=== PATIENT | female | born 1985 | race Caucasian/White ===

== ENCOUNTER 2018-01-08 06:58 | Day surgery (SDC) | payer OTHER ==
[~2018-01-08 06:58] MED LIST: Acetaminophen TAB* 325 MG PO ONE; Buffered Lidocaine 0.9% SYRIN* 5 ML/SYR SYRINGE INTRADERM ONE
[2018-01-08] MEDS ORDERED: Buffered Lidocaine 0.9% SYRIN* 5 ML/SYR SYRINGE ONE (07:27)
[2018-01-08] MEDS ORDERED: Acetaminophen TAB* 325 MG ONE (07:27)
[2018-01-08] MEDS ORDERED: fentaNYL* 50 MCG/ML 2 ML VIAL (100 MCG VIAL) ONE (08:25)
[2018-01-08] MEDS ORDERED: Midazolam* 1 MG/ML 2 ML VIAL (2 MG) ONE ×2 (08:26→09:44)
[2018-01-08] MEDS ORDERED: Lidocaine 1% INJ* 10 MG/ML 30 ML SDV ONE (08:59)
[2018-01-08] MEDS ORDERED: ceFAZolin 2 GM PREMIX in ORs 2 GM/50 ML BAG IVPB ONE (09:02)
[2018-01-08] MEDS ORDERED: Bupivacaine 0.25% SDV PF* 10 ML VIAL INJ ONE (09:16)
[2018-01-08] MEDS ORDERED: Lidocaine 2% PF * 5 ML VIAL ONE (09:18)
[2018-01-08] MEDS ORDERED: Hetastarch 6% in NS* 500 ML IV ONE (09:26)
[2018-01-08] MEDS ORDERED: Ondansetron INJ* 2 MG/ML VIAL ONE (09:52)
[2018-01-08] MEDS ORDERED: Dexamethasone IV* 4 MG/ML 1 ML (4 MG) ONE (09:52)
[2018-01-08] MEDS ORDERED: Propofol* 10 MG/ML 20 ML BTL ONE (09:52)
[2018-01-08] MEDS ORDERED: HYDROcodone/ACETAMIN 5-325 MG* 1 TAB PO PRN ×2 (09:57)
[2018-01-08] MEDS ORDERED: diPHENhydraMINE IV* 50 MG/ML 1 ml VIAL (BENADRYL) IV PRN (09:57)
[2018-01-08] MEDS ORDERED: DiMENhydriNATE IV* 50 MG/ML VIAL IV PUSH PRN (09:57)
[2018-01-08] MEDS ORDERED: Naloxone* 0.4 MG/ML 1 ML VIAL IV PRN (09:57)
[2018-01-08 10:50] VITALS: BP 118/81
--- NOTE | 2018-01-09 05:27 | OP ---
DATE OF OPERATION: 01/08/18 - [facility] DATE OF : 83 ATTENDING SURGEON: Gerardo Norris MD PREOPERATIVE DIAGNOSIS: Poor venous access, requiring transfusion and blood draws for lupus. POSTOPERATIVE DIAGNOSIS: Poor venous access, requiring transfusion and blood draws for lupus. OPERATIVE PROCEDURE: Placement of left side Mediport, subclavian. INDICATION FOR PROCEDURE: Access. Risks of surgery include, but not limited to bleeding, infection, and pneumothorax explained to the patient and seemed to have understanding and agreed to procedure and all questions were answered. DESCRIPTION OF PROCEDURE: The patient was taken to the operating room, placed supine. Preoperative antibiotics were given. The patient was placed in the Trendelenburg position. Left neck and chest were prepped and draped in sterile fashion. Time-out was performed. The skin was anesthetized with 0.25% Marcaine beneath the left clavicle. A needle was placed in the left subclavian vein and a wire was passed through the needle. The needle was removed. A catheter was passed over the wire over the split sheath. The wire was removed. Prior to removing the wire, fluoroscopy showed the wire in good position just above the right atrium. The wire was removed. The sheath was used to pass the catheter down to the superior vena cava just above the right atrium identified by a fluoroscopy. Split sheath was removed. The pocket was made below this entry site after injecting local and creating a small blood pocket that would fit the Mediport. The catheter was tunneled to this pocket. The port was attached, it aspirated blood easily and flushed with heparinized saline. Fluoroscopy was checked again and catheter was in good position. The pocket was closed in layers using 3-0 Monocryl. The skin was closed with the glue. She tolerated the procedure well. She was taken out of Trendelenburg position and taken to the Recovery in stable condition where an x-ray will be performed. [id number] #: [id number] MTDD
== END 2018-01-08 11:13 | disposition home or self-care (01) ==
LOC: OR 06:58
PROVIDERS: ATTEND Surgery
DX: M32.9 Systemic lupus erythematosus, unspecified (principal); E03.9 Hypothyroidism, unspecified; G61.9 Inflammatory polyneuropathy, unspecified; Z79.891 Long term (current) use of opiate analgesic; F41.9 Anxiety disorder, unspecified
CPT/HCPCS: 71045; 76000; 81025; A9270-GY; C1788; J0690; J1100; J1642; J2250; J2405; J2704; J3010; J3490

== ENCOUNTER 2018-01-21 13:29 | Inpatient (IN) | payer OTHER ==
--- OUTSIDE RECORDS SUMMARY | 2018-01-21 15:08 | XMS REPORT | Continuity of Care Document ---
:1985 External Reference #:[id number] Author Name Judy Ennis Care Team Providers Name Role Phone Willard Alfaro MD Primary Care Physician Unavailable Payers Type Date Identification Numbers Payment Provider Subscriber Policy Number: [id number] Zeina [employer] Number: [id number] [id number] PayID: [id number] [place] [address] Advance Directives Description No Information Available Problems Date Description Provider Status Onset: 12/12/2016 Myalgia Smith Dial M.D. 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 Active Onset: 12/12/2016 Chronic fatigue syndrome Smith Dial M.D. Active Onset: 12/12/2016 Skin sensation disturbance Smith Dial M.D. Active Onset: 12/12/2016 Neck pain Smith Dial M.D. Active Family History Date Family Member(s) Problem(s) Comments General No Current Problems Social History Type Date Description Comments Sex Unknown Marital Status Lives With Mother And Father Occupation Currently Working Smokeless Tobacco Never Used Smokeless Tobacco ETOH Use Denies alcohol use Tobacco Use Start: Unknown Patient has never smoked Recreational Drug Use Denies Drug Use Smoking Status Reviewed: 12/27/17 Patient has never smoked Exercise Type/Frequency Exercises rarely Allergies, Adverse Reactions, Alerts Description No Known Drug Allergies Medications Medication Date Status Form Strength Qnty SIG Indications Ordering Provider Prednisone 11/14/ Active Tablets 10mg 30tabs Take one M35.01 Willard 2017 capsule/table elia Alfaro daily by M.D. mouth Stocking 10/12/ Active Misc 2units apply to help R60.0 Willard Applicator 2018 edema/spider Angelina, Regular viens with M.D. compression stockings Benlysta 08/21/ Active Solution 200mg/ml 4units Willard 2018 Auto-Injec Angelina, t M.D. Trazodone 08/17/ Active Tablets 50mg 30tabs take one M79.7 Willard HCL 2018 tablet/capsul Angelina, e by mouth at M.D. bedtime. as needed for insomnia, stop tizanidine M35.9 Butrans 08/17/2017 Active Patches 10mcg/HR 4units topical every M32.9 Willard Weekly 7 days, Angelina, chronic pain M.D. for dx m32.9 lupus Hydrocodone-Ac 05/29/2017 Active Tablets 10-325mg 90tabs take one Willard etaminophen tablet 3 to 4 Angelina, times daily, M.D. sparingly as needed for pain, max 4 per day Gabapentin 12/01/2016 Active Capsules 300mg 270caps take one Willard capsule/tablet Angelina, by mouth three M.D. times daily Vitamin D 07/29/2016 Active Tablets 2000Unit 90tabs Take one Willard capsule/tablet Angelina, daily by mouth M.D. Cyanocobalamin 07/29/2016 Active Tablets 2500mcg 90tabs take one Willard Sub capsule/tablet Angelina, daily M.D. sublingually Levothyroxine Active Tablets 88mcg 1 by mouth Unknown Sodium every day Hydroxychloroq Active Tablets 200mg 180tabs 1 pill by Willard uine Sulfate mouth twice Angelina, daily M.D. Control Active Unknown Pill Hyoscyamine Active Tablets 0.125mg dissolve one Unknown Sulfate Sub or two prn Prednisone 08/17/2017 Hx Tablets 1mg 500tabs take 2 (in Willard - addition to Angelina, 11/14/2017 the 5mg tab) M.D. tablets by mouth once daily , taper by 1 mg every month (quantity clarification) Lexapro 06/19/2017 Hx Tablets 5mg 30tabs Take one Willard - capsule/tablet Angelina, 08/17/2017 daily by mouth M.D. Actemra 05/29/2017 Hx Soln 162mg/0.9 4units inject 162mg M06.4 Willard - Prefill ML subcutaneously Angelina, 08/21/2017 Syringe every week M.D. Remicade 04/26/2017 Hx Solution 100mg every 8 weeks M06.00 Willard - Rec Angelina, 05/29/2017 M.DCassy Orencia 04/25/2017 Hx Solution 250mg 750 mg orencia M06.00 Willard - Rec IV q 4 weeks Angelina, 04/26/2017 M.DCassy Orencia 04/20/2017 Hx Solution 125mg/ml 4units inject Willard Clickject - Auto-Inje contents of Angelina, 04/25/2017 ct one syringe M.D. under the skin every week Prednisone 04/03/2017 Hx Tablets 10mg 150tabs take 4 tabs by M35.01 Zsofia - mouth daily Adrien, 04/13/2017 for 2 days [employer] then 3 tabs daily for 2 days then 2 tabs for 2 days then 1 tab daily ongoing Azithromycin 10/18/2016 Hx Tablets 250mg 6tabs 2 tabs by Willard - mouth on day Angelina, 12/11/2016 1; 1 tab by M.D. mouth every day on days 2-5 Venlafaxine 10/12/2016 Hx Tablets 37.5mg 60tabs 1 by mouth Willard HCL - every other Angelina, 12/01/2016 day M.DCassy Savella 10/11/2016 Hx Tablets 12.5mg 60tabs 1 by mouth M79.7 Willard - daily for 3 Angelina, 10/12/2016 days then 1 M.D. twice daily for 3 days then 1 three times daily ongoing Hydrocodone-Ac 10/05/2016 Hx Tablets 7.5-325mg 90tabs take one Willard etaminophen - tablet by [facility], 05/29/2017 mouth three M.D. times daily as needed for chronic pain Enbrel 09/12/2016 Hx Solution 50mg/ml 3units Inject 50 MG M06.4 Willard Sureclick - Auto-Inje Under The Skin Angelina, 05/29/2017 ct Once Per Week M.D. Enbrel 09/08/2016 Hx Soln 50mg/ml 11.76ml 50mg sq every M06.4 [place] - Prefill week [facility], 09/12/2016 Syringe BarbaraDCassy Tizanidine HCL 09/07/2016 Hx Tablets 2mg 180tabs take one or M79.7 Willard - two tablets at [facility], 08/17/2017 bedtime as M.D. needed for spasms M35.9 Lyrica 09/05/2016 - Hx Capsules 50mg 76caps 2 tabs by mouth M79.7 Willard 09/07/2016 once daily x 2 Miriam Alfaro weeks, then 3 tabs daily (order clarification per request) M35.9 Tramadol HCL 08/26/2016 - Hx Tablets 50mg 60tabs take one M06.4 Willard 10/12/2016 capsule/tablet Angelina, by mouth twice M.D. daily as needed for pain Lyrica 08/16/2016 - Hx Capsules 50mg 30caps Take one M06.4 Willard 08/26/2016 capsule/tablet Angelina, daily by mouth M.DCassy Zyrtec Allergy 07/22/2016 - Hx Tablets 10mg 30tabs 1 by mouth every [place] 07/22/2016 day for the next [facility], 3-4 weeks, then M.D. as needed Cymbalta 07/22/2016 - Hx Caps DR 30mg 90caps 1 by mouth every M35.01 Willard 08/16/2016 Part day Miriam Alfaro Prednisone 07/22/2016 - Hx Tablets 5mg 90tabs take one M35.01 [place] 11/14/2017 capsule/tablet Angelina, daily by mouth M.DCassy Prednisone - Hx Tablets 10mg one tab by mouth Unknown 07/22/2016 daily Gabapentin - Hx Capsules 100mg 3 tabs at hs Unknown 08/16/2016 Azithromycin - Hx Tablets 250mg two tabs day Unknown 03/01/2017 one, one daily till gone Medications Administered in Office Medication Date Status Form Strength Qnty SIG Indications Ordering Provider Triamcinolone Injection Willard (Kenalog) 2017 Miriam Alfaro Immunizations CPT Code Status Date Vaccine Reaction Lot # [id number] Given 07/10/2017 Pneumonia Vaccine no immediate reaction [id number] noted 24005 Given 11/25/2016 Pneumococcal Conjugate no immediate reaction [id number] Vaccine 13 Valent For noted Intramuscular Use 69984 Given 11/14/2016 Influenza Virus Vaccine, no immediate reaction [id number] Quadrivalent, Split, Preservative Free Vital Signs Date Vital Result Comment 12/27/2017 8:35am Height 63 inches 5'3" Weight 185.00 lb Heart Rate 78 /min BP Systolic 104 mmHg BP Diastolic 68 mmHg Respiratory Rate 16 /min Body Temperature 98.3 F BMI (Body Mass Index) 32.8 kg/m2 10/12/2017 8:12am Height 63 inches 5'3" Weight 193.38 lb Heart Rate 71 /min BP Systolic Sitting 112 mmHg BP Diastolic Sitting 74 mmHg Pain Level 5 O2 % BldC Oximetry 96 % BMI (Body Mass Index) 34.3 kg/m2 08/17/2017 8:28am Height 63 inches 5'3" Weight 189.00 lb Heart Rate 72 /min BP Systolic Sitting 112 mmHg BP Diastolic Sitting 72 mmHg Respiratory Rate 14 /min Pain Level 6 BMI (Body Mass Index) 33.5 kg/m2 07/10/2017 1:26pm Height 63 inches 5'3" Weight 180.00 lb Heart Rate 82 /min BP Systolic Sitting 104 mmHg BP Diastolic Sitting 80 mmHg Respiratory Rate 14 /min Pain Level 6 BMI (Body Mass Index) 31.9 kg/m2 05/29/2017 1:24pm Height 63 inches 5'3" Weight 186.00 lb Heart Rate 84 /min BP Systolic Sitting 106 mmHg BP Diastolic Sitting 72 mmHg Respiratory Rate 14 /min Pain Level 4 BMI (Body Mass Index) 32.9 kg/m2 03/01/2017 8:25am Height 63 inches 5'3" Weight 183.00 lb Heart Rate 80 /min BP Systolic Sitting 112 mmHg BP Diastolic Sitting 70 mmHg Respiratory Rate 14 /min Pain Level 4 BMI (Body Mass Index) 32.4 kg/m2 01/18/2017 11:13am Height 63 inches 5'3" Weight 181.00 lb Heart Rate 84 /min BP Systolic Sitting 110 mmHg BP Diastolic Sitting 80 mmHg Respiratory Rate 14 /min BMI (Body Mass Index) 32.1 kg/m2 01/09/2017 9:08am Height 63 inches 5'3" Weight 170.00 lb Heart Rate 62 /min BP Systolic Sitting 118 mmHg BP Diastolic Sitting 66 mmHg Respiratory Rate 16 /min BMI (Body Mass Index) 30.1 kg/m2 12/12/2016 10:40am Height 63 inches 5'3" Weight 170.00 lb Heart Rate 60 /min BP Systolic Sitting 108 mmHg BP Diastolic Sitting 68 mmHg Respiratory Rate 14 /min BMI (Body Mass Index) 30.1 kg/m2 11/14/2016 11:12am Height 63 inches 5'3" Weight 174.00 lb Heart Rate 72 /min BP Systolic Sitting 124 mmHg BP Diastolic Sitting 82 mmHg Respiratory Rate 14 /min Pain Level 6 BMI (Body Mass Index) 30.8 kg/m2 10/11/2016 4:27pm Height 63 inches 5'3" Weight 175.12 lb Heart Rate 80 /min BP Systolic Sitting 110 mmHg BP Diastolic Sitting 70 mmHg Respiratory Rate 14 /min Pain Level 4 BMI (Body Mass Index) 31.0 kg/m2 09/05/2016 1:39pm Height 63 inches 5'3" Weight 173.00 lb Heart Rate 70 /min BP Systolic Sitting 120 mmHg BP Diastolic Sitting 78 mmHg Respiratory Rate 14 /min Body Temperature 99.4 F O2 % BldC Oximetry 98 % BMI (Body Mass Index) 30.6 kg/m2 08/16/2016 11:51am Height 63 inches 5'3" Weight 173.38 lb Heart Rate 80 /min BP Systolic Sitting 120 mmHg BP Diastolic Sitting 70 mmHg Respiratory Rate 14 /min Pain Level 3 BMI (Body Mass Index) 30.7 kg/m2 07/22/2016 8:47am Height 63 inches 5'3" Weight 174.00 lb Heart Rate 68 /min BP Systolic Sitting 110 mmHg BP Diastolic Sitting 70 mmHg Respiratory Rate 14 /min Pain Level 5 BMI (Body Mass Index) 30.8 kg/m2 Results Test Date Facility Test Result H/L Range Note Laboratory test 09/28/2017 [facility] Erythrocyte Sed 4 mm/Hr N 0-[address] [place] [address] [phone] C Reactive Protein 1.41 mg/L N <8.01 CBC Auto Diff 09/28/2017 [facility] White Blood 5.4 10^3/uL N 3.5-10.[address] [place] [address] [phone] Red Blood Count 4.60 10^6/uL N 4.00-5.40 Hemoglobin 15.0 g/dL N 12.0-16.0 Hematocrit 43 % N 35-47 Mean Corpuscular Volume 92 fL N 80-97 Mean Corpuscular Hemoglobin 33 pg High 27-31 Mean Corpuscular HGB Conc 35 g/dL N 31-36 Red Cell Distribution Width 14 % N 10.5-15 Platelet Count 187 10^3/uL N 150-450 Mean Platelet Volume 7.7 um3 N 7.4-10.4 Abs Neutrophils 3.0 10^3/uL N 1.5-7.7 Abs Lymphocytes 1.7 10^3/uL N 1.0-4.8 Abs Monocytes 0.5 10^3/uL N 0-0.8 Abs Eosinophils 0.1 10^3/uL N 0-0.6 Abs Basophils 0 10^3/uL N 0-0.2 Abs Nucleated RBC 0 10^3/uL Granulocyte % 56.3 % N 38-83 Lymphocyte % 31.8 % N 25-47 Monocyte % 9.7 % High 0-7 Eosinophil % 1.3 % N 0-6 Basophil % 0.9 % N 0-2 Nucleated Red Blood Cells % 0 Comp Metabolic Panel 09/28/2017 [facility] Sodium 138 mmol/L N 135-145 [address] [place] [address] [phone] Potassium 3.7 mmol/L N 3.5-5.0 Chloride 106 mmol/L N 101-111 Co2 Carbon Dioxide 26 mmol/L N 22-32 Anion Gap 6 mmol/L N 2-11 Glucose 81 mg/dL N 70-100 Blood Urea Nitrogen 12 mg/dL N 6-24 Creatinine 0.79 mg/dL N 0.51-0.95 BUN/Creatinine Ratio 15.2 N 8-20 Calcium 9.1 mg/dL N 8.6-10.3 Total Protein 6.3 g/dL Low 6.4-8.9 Albumin 3.9 g/dL N 3.2-5.2 Globulin 2.4 g/dL N 2-4 Albumin/Globulin Ratio 1.6 N 1-3 Total Bilirubin 1.70 mg/dL High 0.2-1.0 Alkaline Phosphatase 22 U/L Low 34-104 Alt 18 U/L N 7-52 Ast 19 U/L N 13-39 Egfr Non- 83.8 >60 Egfr 101.4 >60 1 Urinalysis Profile 09/28/2017 [facility] Urine Color Yellow [address] [place] [address] [phone] Urine Appearance Cloudy Urine Specific Serena 1.023 N 1.010-1.030 Urine pH 5.0 N 5-9 Urine Urobilinogen Negative Negative Urine Ketones Negative Negative Urine Protein Negative Negative Urine Leukocytes 2+ Abnormal Negative Urine Blood Negative Negative Urine Nitrite Negative Negative Urine Bilirubin Negative Negative Urine Glucose Negative Negative Urine White Blood Cell 3+(>20/hpf) Abnormal Absent Urine Red Blood Cell Trace(0-2/hpf) Absent Urine Bacteria Absent Absent Urine Squamous Epithelial Cell Present Abnormal Absent Urine Culture And 09/28/2017 [facility] Urine Culture SEE RESULT [address] [place] [address] [phone] Laboratory test 07/10/2017 [facility] Erythrocyte Sed 3 mm/Hr N 0-[address] [place] [address] [phone] Ssa/SSB Abs Igg 07/10/2017 [facility] SS-A/Ro Antibody <0.2 U [address] [place] [address] [phone] SS-B/La Antibody <0.2 U 4 CBC Auto Diff 07/10/2017 [facility] White Blood 5.9 10^3/uL N 3.5-10.[address] [place] [address] [phone] Red Blood Count 4.62 10^6/uL N 4.0-5.4 Hemoglobin 14.4 g/dL N 12.0-16.0 Hematocrit 42 % N 35-47 Mean Corpuscular Volume 91 fL N 80-97 Mean Corpuscular Hemoglobin 31 pg N 27-31 Mean Corpuscular HGB Conc 34 g/dL N 31-36 Red Cell Distribution Width 14 % N 10.5-15 Platelet Count 179 10^3/uL N 150-450 Mean Platelet Volume 8.3 um3 N 7.4-10.4 Abs Neutrophils 4.0 10^3/uL N 1.5-7.7 Abs Lymphocytes 1.3 10^3/uL N 1.0-4.8 Abs Monocytes 0.6 10^3/uL N 0-0.8 Abs Eosinophils 0 10^3/uL N 0-0.6 Abs Basophils 0 10^3/uL N 0-0.2 Abs Nucleated RBC 0 10^3/uL Granulocyte % 67.4 % N 38-83 Lymphocyte % 21.4 % Low 25-47 Monocyte % 9.8 % High 0-7 Eosinophil % 0.7 % N 0-6 Basophil % 0.7 % N 0-2 Nucleated Red Blood Cells % 0 Comp Metabolic Panel 07/10/2017 [facility] Sodium 142 mmol/L N 139-145 [address] [place] [address] [phone] Potassium 4.1 mmol/L N 3.5-5.0 Chloride 105 mmol/L N 101-111 Co2 Carbon Dioxide 30 mmol/L N 22-32 Anion Gap 7 mmol/L N 2-11 Glucose 71 mg/dL N 70-100 Blood Urea Nitrogen 15 mg/dL N 6-24 Creatinine 0.88 mg/dL N 0.51-0.95 BUN/Creatinine Ratio 17.0 N 8-20 Calcium 9.9 mg/dL N 8.6-10.3 Total Protein 6.6 g/dL N 6.4-8.9 Albumin 4.2 g/dL N 3.2-5.2 Globulin 2.4 g/dL N 2-4 Albumin/Globulin Ratio 1.8 N 1-3 Total Bilirubin 1.10 mg/dL High 0.2-1.0 Alkaline Phosphatase 29 U/L Low 34-104 Alt 14 U/L N 7-52 Ast 15 U/L N 13-39 Egfr Non- 74.0 >60 Egfr 95.2 >60 5 Laboratory test 07/10/2017 [facility] C Reactive Protein 1.66 mg /L N < 5.00 6 finding [address] [place] [address] [phone] Lipid Profile 07/10/2017 [facility] Triglycerides 181 mg/dL 7 (Trig/Chol/HDL) [address] [place] [address] [phone] Cholesterol 189 mg/dL 8 HDL Cholesterol 87.5 mg/dL 9 LDL Cholesterol 65 mg/dL 10 Rapid Influenza 04/17/2017 [facility] Influenza A NEGATIVE Negative 11 A & B Molecular [address] [facility] [place] [address] [phone] Influenza B Molecular NEGATIVE Negative Laboratory test 04/17/2017 [facility] Rapid Influenza A SEE RESULT [address] [place] [address] [phone] Laboratory test 02/21/2017 [facility] Erythrocyte Sed 8 mm/Hr N 0-[address] [place] [address] [phone] C Reactive Protein 8.63 mg/L High < 5.00 13 Comp Metabolic Panel 02/21/2017 [facility] Sodium 137 mmol/L N 133-[address] [place] [address] [phone] Potassium 4.1 mmol/L N 3.5-5.0 Chloride 104 mmol/L N 101-111 Co2 Carbon Dioxide 29 mmol/L N 22-32 Anion Gap 4 mmol/L N 2-11 Glucose 95 mg/dL N 70-100 Blood Urea Nitrogen 11 mg/dL N 6-24 Creatinine 0.75 mg/dL N 0.51-0.95 BUN/Creatinine Ratio 14.7 N 8-20 Calcium 9.2 mg/dL N 8.6-10.3 Total Protein 6.4 g/dL N 6.4-8.9 Albumin 3.7 g/dL N 3.2-5.2 Globulin 2.7 g/dL N 2-4 Albumin/Globulin Ratio 1.4 N 1-3 Total Bilirubin 0.80 mg/dL N 0.2-1.0 Alkaline Phosphatase 35 U/L N 34-104 Alt 12 U/L N 7-52 Ast 14 U/L N 13-39 Egfr Non- 89.6 >60 Egfr 115.2 >60 14 CBC Auto Diff 02/21/2017 [facility] White Blood 6.8 10^3/uL N 3.5-10.[address] [place] [address] [phone] Red Blood Count 4.46 10^6/uL N 4.0-5.4 Hemoglobin 13.9 g/dL N 12.0-16.0 Hematocrit 40 % N 35-47 Mean Corpuscular Volume 90 fL N 80-97 Mean Corpuscular Hemoglobin 31 pg N 27-31 Mean Corpuscular HGB Conc 34 g/dL N 31-36 Red Cell Distribution Width 14 % N 10.5-15 Platelet Count 237 10^3/uL N 150-450 Mean Platelet Volume 8 um3 N 7.4-10.4 Abs Neutrophils 4.7 10^3/uL N 1.5-7.7 Abs Lymphocytes 1.5 10^3/uL N 1.0-4.8 Abs Monocytes 0.4 10^3/uL N 0-0.8 Abs Eosinophils 0.1 10^3/uL N 0-0.6 Abs Basophils 0.1 10^3/uL N 0-0.2 Abs Nucleated RBC 0 10^3/uL Granulocyte % 69.4 % N 38-83 Lymphocyte % 22.2 % Low 25-47 Monocyte % 6.4 % N 1-9 Eosinophil % 1.1 % N 0-6 Basophil % 0.9 % N 0-2 Nucleated Red Blood Cells % 0 Urinalysis Profile 02/21/2017 [facility] Urine Color Yellow [address] [place] [address] [phone] Urine Appearance Clear Urine Specific Serena 1.014 N 1.010-1.030 Urine pH 6.0 N 5-9 Urine Urobilinogen Negative Negative Urine Ketones Negative Negative Urine Protein Negative Negative Urine Leukocytes Trace Abnormal Negative Urine Blood Negative Negative Urine Nitrite Negative Negative Urine Bilirubin Negative Negative Urine Glucose Negative Negative Urine White Blood Cell Trace(0-5/hpf) Absent Urine Red Blood Cell Absent Absent Urine Bacteria Absent Absent Urine Squamous Epithelial Cell Present Abnormal Absent Urine Culture And 02/21/2017 [facility] Urine Culture SEE RESULT [address] [place] [address] [phone] Laboratory test 02/21/2017 [facility] Complement C3 118 mg/dL 75 - [address] [place] [address] [phone] Complement C4 20 mg/dL 14 - 40 17 Anti Double Stranded Dna AB <12.3 IU/mL 18 Drug Abuse 20 02/21/2017 [facility] Urine Amphetamine Negative ng/mL [address] [place] [address] [phone] Urine Barbiturates Negative ng/mL 20 Urine Benzodiazepines Negative ng/mL 21 Urine Cocaine Negative ng/mL 22 Urine Phencyclidine Negative ng/mL Cutoff: 25 Urine Tetrahydrocannabinol Negative ng/mL Cutoff: 50 23 Creatinine, Urine 65.7 mg/dL Specific Serena 1.013 pH 7.1 Oxidants Negative 24 Adulterants Comment Normal Codeine, Ur Not Detected ng/mL Cutoff: 25 25 Tequiji-6-corn-glucuronide, Ur Not Detected ng/mL 26 Morphine, Ur Not Detected ng/mL Cutoff: 25 27 Pmyfjpyk-7-ukzp-glucuronide, U Not Detected ng/mL 28 6-monoacetylmorphine, Ur Not Detected ng/mL Cutoff: 25 29 Hydrocodone, Ur Present ng/mL Cutoff: 25 30 Norhydrocodone, Ur Present ng/mL Cutoff: 25 31 Dihydrocodeine, Ur Not Detected ng/mL Cutoff: 25 32 Hydromorphone, Ur Not Detected ng/mL Cutoff: 25 33 Hwxqqnicgmeze1qtetqhphrhbrxnz Not Detected ng/mL 34 Oxycodone, Ur Not Detected ng/mL Cutoff: 25 35 Noroxycodone, Ur Not Detected ng/mL Cutoff: 25 36 Oxymorphone, Ur Not Detected ng/mL Cutoff: 25 37 Qisjlfkrizm-0-rjci-glucuronide Not Detected ng/mL 38 Noroxymorphone, Ur Not Detected ng/mL Cutoff: 25 39 Fentanyl, Ur Not Detected ng/mL Cutoff: 2 40 Norfentanyl, Ur Not Detected ng/mL Cutoff: 2 41 Meperidine, Ur Not Detected ng/mL Cutoff: 25 42 Normeperidine, Ur Not Detected ng/mL Cutoff: 25 43 Naloxone, Ur Not Detected ng/mL Cutoff: 25 44 Eydjnioz-8-rcot-glucuronide, U Not Detected ng/mL 45 Methadone, Ur Not Detected ng/mL Cutoff: 25 46 Eddp, Ur Not Detected ng/mL Cutoff: 25 47 Propoxyphene, Ur Not Detected ng/mL Cutoff: 25 48 Norpropoxyphene, Ur Not Detected ng/mL Cutoff: 25 49 Tramadol, Ur Not Detected ng/mL Cutoff: 25 50 O-desmethyltramadol, Ur Not Detected ng/mL Cutoff: 25 51 Tapentadol, Ur Not Detected ng/mL Cutoff: 25 52 N-desmethyltapentadol, Ur Not Detected ng/mL Cutoff: 50 53 Qsrxxeagsg-qtkr-cvbxvnzodee, U Not Detected ng/mL 54 Buprenorphine, Ur Not Detected ng/mL Cutoff: 5 55 Norbuprenorphine, Ur Not Detected ng/mL Cutoff: 5 56 Norbuprenorphine glucuronide Not Detected ng/mL Cutoff: 20 57 Opioid Interpretation See Comment 58 Laboratory test 02/21/2017 [facility] TSH (Thyroid 1.77 N 0.34 -5.[address] Stim Horm) mcIU/[place] [address] [phone] Laboratory test 11/14/2016 [facility] Vitamin D, 62 pg/mL N 18 -78 [address] 1,25 [place] [address] [phone] Immunoglobulin G (Igg) 940 mg/dL N 767 - 1590 60 Comp Metabolic Panel 11/14/2016 [facility] Sodium 139 mmol/L N 133-[address] [place] [address] [phone] Potassium 3.5 mmol/L N 3.5-5.0 Chloride 105 mmol/L N 101-111 Co2 Carbon Dioxide 28 mmol/L N 22-32 Anion Gap 6 mmol/L N 2-11 Glucose 80 mg/dL N 70-100 Blood Urea Nitrogen 7 mg/dL N 6-24 Creatinine 0.70 mg/dL N 0.51-0.95 BUN/Creatinine Ratio 10.0 N 8-20 Calcium 9.2 mg/dL N 8.6-10.3 Total Protein 6.8 g/dL N 6.4-8.9 Albumin 4.0 g/dL N 3.2-5.2 Globulin 2.8 g/dL N 2-4 Albumin/Globulin Ratio 1.4 N 1-3 Total Bilirubin 1.30 mg/dL High 0.2-1.0 Alkaline Phosphatase 35 U/L N 34-104 Alt 10 U/L N 7-52 Ast 15 U/L N 13-39 Egfr Non- 97.0 N >60 Egfr 124.7 N >60 61 CBC Auto Diff 11/14/2016 [facility] White Blood 5.0 10^3/uL N 3.5-10.[address] [place] [address] [phone] Red Blood Count 4.40 10^6/uL N 4.0-5.4 Hemoglobin 13.5 g/dL N 12.0-16.0 Hematocrit 39 % N 35-47 Mean Corpuscular Volume 89 fL N 80-97 Mean Corpuscular Hemoglobin 31 pg N 27-31 Mean Corpuscular HGB Conc 34 g/dL N 31-36 Red Cell Distribution Width 14 % N 10.5-15 Platelet Count 185 10^3/uL N 150-450 Mean Platelet Volume 8 um3 N 7.4-10.4 Abs Neutrophils 3.0 10^3/uL N 1.5-7.7 Abs Lymphocytes 1.5 10^3/uL N 1.0-4.8 Abs Monocytes 0.3 10^3/uL N 0-0.8 Abs Eosinophils 0.1 10^3/uL N 0-0.6 Abs Basophils 0 10^3/uL N 0-0.2 Abs Nucleated RBC 0 10^3/uL N Granulocyte % 60.5 % N 38-83 Lymphocyte % 30.9 % N 25-47 Monocyte % 6.5 % N 1-9 Eosinophil % 1.5 % N 0-6 Basophil % 0.6 % N 0-2 Nucleated Red Blood Cells % 0.1 N Laboratory test 11/14/2016 [facility] Erythrocyte Sed 10 mm/Hr N 0-[address] [place] [address] [phone] C Reactive Protein 10.80 mg/L High < 5.00 62 Quantiferon Gold 09/05/2016 [facility] M tuberculosis Negative N Negative [address] [place] [address] [phone] TB Ag minus Nil Result 0.29 IU/mL N TB Mitogen minus Nil Result > 10.00 IU/mL N TB Nil Result 0.02 IU/mL N 64 Comp Metabolic Panel 08/16/2016 [facility] Sodium 138 mmol/L N 133-[address] [place] [address] [phone] Potassium 3.8 mmol/L N 3.5-5.0 Chloride 105 mmol/L N 101-111 Co2 Carbon Dioxide 27 mmol/L N 22-32 Anion Gap 6 mmol/L N 2-11 Glucose 80 mg/dL N 70-100 Blood Urea Nitrogen 10 mg/dL N 6-24 Creatinine 0.75 mg/dL N 0.51-0.95 BUN/Creatinine Ratio 13.3 N 8-20 Calcium 9.1 mg/dL N 8.6-10.3 Total Protein 6.3 g/dL Low 6.4-8.9 Albumin 3.7 g/dL N 3.2-5.2 Globulin 2.6 g/dL N 2-4 Albumin/Globulin Ratio 1.4 N 1-3 Total Bilirubin 1.10 mg/dL High 0.2-1.0 Alkaline Phosphatase 40 U/L N 34-104 Alt 11 U/L N 7-52 Ast 13 U/L N 13-39 Egfr Non- 89.6 N >60 Egfr 115.2 N >60 65 Laboratory test 08/16/2016 [facility] C Reactive 14.79 mg/L High < 5.00 [address] [place] [address] [phone] CBC Auto Diff 08/16/2016 [facility] White Blood 6.3 N 3.5- 10.[address] Count 10^3/[place] [address] [phone] Red Blood Count 4.28 10^6/uL N 4.0-5.4 Hemoglobin 13.2 g/dL N 12.0-16.0 Hematocrit 39 % N 35-47 Mean Corpuscular Volume 90 fL N 80-97 Mean Corpuscular Hemoglobin 31 pg N 27-31 Mean Corpuscular HGB Conc 34 g/dL N 31-36 Red Cell Distribution Width 14 % N 10.5-15 Platelet Count 199 10^3/uL N 150-450 Mean Platelet Volume 9 um3 N 7.4-10.4 Abs Neutrophils 4.4 10^3/uL N 1.5-7.7 Abs Lymphocytes 1.3 10^3/uL N 1.0-4.8 Abs Monocytes 0.5 10^3/uL N 0-0.8 Abs Eosinophils 0.1 10^3/uL N 0-0.6 Abs Basophils 0 10^3/uL N 0-0.2 Abs Nucleated RBC 0 10^3/uL N Granulocyte % 70.0 % N 38-83 Lymphocyte % 21.2 % Low 25-47 Monocyte % 7.2 % N 1-9 Eosinophil % 0.9 % N 0-6 Basophil % 0.7 % N 0-2 Nucleated Red Blood Cells % 0.1 N Laboratory test 08/16/2016 [facility] Erythrocyte Sed 8 mm/Hr N 0-[address] Rate [place], [place] [address] [phone] Laboratory test 07/22/2016 [facility] C Reactive 10.06 High < 5.00 [address] Protein mg/[place] [address] [phone] Bridgette Igg AB 07/22/2016 [facility] SS-A/Ro Antibody <0.2 U N [address] [place] [address] [phone] SS-B/La Antibody <0.2 U N 69 Sm (Bae) IgG Antibody <0.2 U N 70 U1-nRNP Antibody <0.2 U N 71 Scl-70 (Scleroderma) Antibody <0.2 U N 72 Nieves-1 Antibody <0.2 U N 73 Laboratory test 07/22/2016 [facility] Creatine 59 U/L N 10- [address] Kinase(CK) [place] [address] [phone] Comp Metabolic 07/22/2016 [facility] Sodium 137 N 133-[address] mmol/[place] [address] [phone] Potassium 3.8 mmol/L N 3.5-5.0 Chloride 104 mmol/L N 101-111 Co2 Carbon Dioxide 26 mmol/L N 22-32 Anion Gap 7 mmol/L N 2-11 Glucose 82 mg/dL N 70-100 Blood Urea Nitrogen 7 mg/dL N 6-24 Creatinine 0.66 mg/dL N 0.51-0.95 BUN/Creatinine Ratio 10.6 N 8-20 Calcium 9.5 mg/dL N 8.6-10.3 Total Protein 7.0 g/dL N 6.4-8.9 Albumin 4.2 g/dL N 3.2-5.2 Globulin 2.8 g/dL N 2-4 Albumin/Globulin Ratio 1.5 N 1-3 Total Bilirubin 1.10 mg/dL High 0.2-1.0 Alkaline Phosphatase 42 U/L N 34-104 Alt 18 U/L N 7-52 Ast 17 U/L N 13-39 Egfr Non- 103.8 N >60 Egfr 133.5 N >60 74 CBC Auto Diff 07/22/2016 [facility] White Blood 5.3 10^3/uL N 3.5-10.[address] [place] [address] [phone] Red Blood Count 4.56 10^6/uL N 4.0-5.4 Hemoglobin 13.7 g/dL N 12.0-16.0 Hematocrit 40 % N 35-47 Mean Corpuscular Volume 89 fL N 80-97 Mean Corpuscular Hemoglobin 30 pg N 27-31 Mean Corpuscular HGB Conc 34 g/dL N 31-36 Red Cell Distribution Width 15 % N 10.5-15 Platelet Count 186 10^3/uL N 150-450 Mean Platelet Volume 9 um3 N 7.4-10.4 Abs Neutrophils 3.5 10^3/uL N 1.5-7.7 Abs Lymphocytes 1.4 10^3/uL N 1.0-4.8 Abs Monocytes 0.3 10^3/uL N 0-0.8 Abs Eosinophils 0 10^3/uL N 0-0.6 Abs Basophils 0 10^3/uL N 0-0.2 Abs Nucleated RBC 0.01 10^3/uL N Granulocyte % 66.0 % N 38-83 Lymphocyte % 26.0 % N 25-47 Monocyte % 6.4 % N 1-9 Eosinophil % 0.8 % N 0-6 Basophil % 0.8 % N 0-2 Nucleated Red Blood Cells % 0.1 N Laboratory test 07/22/2016 [facility] Complement C3 105 mg/dL N 75 - 175 [address] [place] [address] [phone] Complement C4 23 mg/dL N 14 - 40 76 Anti Double Stranded Dna AB <12.3 IU/mL N 77 Cardiolipin 07/22/2016 [facility] Phospholipid Ab < 9.4 MPL N 78 Igg/Igm [address] IgM, [place] [address] [phone] Phospholipid Ab IgG < 9.4 GPL N 79 Laboratory test 07/22/2016 [facility] Erythrocyte Sed 10 mm/Hr N 0-[address] [place] [address] [phone] Rheumatoid Factor <15 IU/mL N <15 80 Cyclic Citrullinated Pep Igg <15.6 U N 81 Free Cortisol Serum 0.34 g/dL N 82 Hepatitis 07/22/2016 [facility] Hepatitis C Nonreactive N Nonreactive Acute Panel [address] [place] [address] [phone] Hepatitis A AB Igm Nonreactive N Nonreactive Hepatitis B Core AB Igm Nonreactive N Nonreactive Hepatitis B Surface Ag Nonreactive N Nonreactive Hla B27 07/22/2016 [facility] Hla B27 Negative N [address] [place] [address] [phone] Hla B27 Interp See Comment N 84 Laboratory test 07/22/2016 [facility] Angiotensin 17 U/L N 8 - 53 [address] Converting Enzyme [place], [place] [address] [phone] Lyme Disease Serology Negative N Negative 86 Vitamin D 1,25 07/22/2016 [facility] Vitamin D 22.8 ng/mL Low 30-50 And Vitamin D,[address] Total 25(Oh) [place] [address] [phone] Vitamin D, 1,25 Dihydroxy 172 pg/mL Abnormal 18-78 87 Laboratory test 07/22/2016 [facility] Vitamin B12 283 pg/mL N 180-914 [address] [place], [place] [address] [phone] Anca AB Ser If 07/22/2016 [facility] C-Anca Negative N Negative [address] [place] [address] [phone] P-Anca Negative N Negative 89 1 Because ethnic data is not always readily available, this report includes an eGFR for both -Americans and non- Americans. The National Kidney Disease Education Program (NKDEP) does not endorse the use of the MDRD equation for patients that are not between the ages of 18 and 70, are , have extremes of body size, muscle mass, or nutritional status, or are non- or non-. According to the National Kidney Foundation, irrespective of diagnosis, the stage of the disease is based on the level of kidney function: Stage Description GFR(mL/min/1.73 m(2)) 1 Kidney damage with normal or decreased GFR 90 2 Kidney damage with mild decrease in GFR 60-89 3 Moderate decrease in GFR 30-59 4 Severe decrease in GFR 15-29 5 Kidney failure <15 (or dialysis) 2 SEE RESULT BELOW Name: AMANDA COLLINS : [address]: Willard Alfaro MD Acct: [id number] Unit: [id number] AGE: 32 Location: INF Re09/28/17 SEX: F Status: REG REF SPEC: [id number] ANGEL: 09/28/17-[address]: Willard Alfaro MD REQ: [id number] RECD: 09/28/17 STATUS: COMP _ SOURCE: URINE SPDESC: ORDERED: Urine Culture Procedure Result Reported Site Urine Culture Final 09/29/17- 1156 ML Few Enterobacteriacae; possible contamination. * ML - Main Lab . END OF REPORT DEPARTMENT OF PATHOLOGY, [address] [place] [address] Tha Beasley M.D. Director [facility] # [id number] 3 REFERENCE VALUE <1.0 (Negative) 4 REFERENCE VALUE <1.0 (Negative) Test Performed by: [address] [address] 5 Because ethnic data is not always readily available, this report includes an eGFR for both -Americans and non- Americans. The National Kidney Disease Education Program (NKDEP) does not endorse the use of the MDRD equation for patients that are not between the ages of 18 and 70, are , have extremes of body size, muscle mass, or nutritional status, or are non- or non-. According to the National Kidney Foundation, irrespective of diagnosis, the stage of the disease is based on the level of kidney function: Stage Description GFR(mL/min/1.73 m(2)) 1 Kidney damage with normal or decreased GFR 90 2 Kidney damage with mild decrease in GFR 60-89 3 Moderate decrease in GFR 30-59 4 Severe decrease in GFR 15-29 5 Kidney failure <15 (or dialysis) 6 Acute inflammation: >10.00 7 Desirable: <150 Borderline High: 150-199 High: 200-499 Very High: >500 8 Desirable: <200 Borderline High: 200-239 High: >239 9 Low: <40 Desirable: 40-60 High: >60 10 Desirable: <100 Near Optimal: 100-129 Borderline High: 130-159 High: 160-189 Very High: >189 11 Learning Designer: [id number] SEE RESULT BELOW Name: AMANDA COLLINS : [address]: Willard Alfaro MD Acct: [id number] Unit: [id number] AGE: 32 Location: LAB Re04/17/17 SEX: F Status: REG REF SPEC: [id number] ANGEL: 04/17/[address] [facility] [address]: Willard Alfaro MD REQ: [id number] RECD: 04/17/17 STATUS: COMP _ SOURCE: NASAL SPDESC: ORDERED: Flu A B Request Procedure Result Reported Site Rapid Influenza A B Request Final 04/17/17- 1339 ML Specimen received for Influenza A/B Molecular testing * ML - Main Lab . END OF REPORT DEPARTMENT OF PATHOLOGY, [address] [place] [address] Tha Beasley M.D. Director [facility] # [id number] 13 Acute inflammation: >10.00 14 Because ethnic data is not always readily available, this report includes an eGFR for both -Americans and non- Americans. The National Kidney Disease Education Program (NKDEP) does not endorse the use of the MDRD equation for patients that are not between the ages of 18 and 70, are , have extremes of body size, muscle mass, or nutritional status, or are non- or non-. According to the National Kidney Foundation, irrespective of diagnosis, the stage of the disease is based on the level of kidney function: Stage Description GFR(mL/min/1.73 m(2)) 1 Kidney damage with normal or decreased GFR 90 2 Kidney damage with mild decrease in GFR 60-89 3 Moderate decrease in GFR 30-59 4 Severe decrease in GFR 15-29 5 Kidney failure <15 (or dialysis) 15 SEE RESULT BELOW Name: AMANDA COLLINS : [address]: Willard Alfaro MD Acct: [id number] Unit: [id number] AGE: 31 Location: LAB Re02/21/17 SEX: F Status: REG REF SPEC: [id number] ANGEL: 02/21/[address]: Willard Alfaro MD REQ: [id number] RECD: 02/21/17 STATUS: FAIZAN MONTOYA DR: Oj Urrutia RIB CUTTER _ SOURCE: URINE SPDESC: ORDERED: Urine Culture Procedure Result Reported Site Urine Culture Final 02/23/17- 0811 ML No Growth (<1,000 CFU/mL) * ML - [facility] ([facility]) . END OF REPORT * ML=Testing performed at [facility] DEPARTMENT OF PATHOLOGY, [address] [place] [address] Tha Beasley M.D. Director [facility] # [id number] 16 Test Performed by: [address] [address] 17 Test Performed by: [address] [address] 18 REFERENCE VALUE <30.0 (Negative) Test Performed by: [address] [address] 19 REFERENCE VALUE Cutoff: 500 20 REFERENCE VALUE Cutoff: 200 21 REFERENCE VALUE Cutoff: 100 22 REFERENCE VALUE Cutoff: 150 23 ADDITIONAL INFORMATION This report is intended for use in clinical monitoring or management of patients. It is not intended for use in employment-related testing. 24 REFERENCE VALUE Cutoff: 200 mg/L 25 Tylenol 3 26 Metabolite of codeine REFERENCE VALUE Cutoff: 100 27 Princess Casper, Contin; Also a minor metabolite (10%) of codeine and can be seen in low concentrations (<2,000 ng/mL) with poppy seed ingestion. 28 Metabolite of morphine REFERENCE VALUE Cutoff: 100 29 Metabolite of heroin 30 Lortab, Grover, Vicodin; Also a very minor metabolite of codeine and impurity (<1%) of oxycodone. 31 Metabolite of hydrocodone 32 Metabolite of hydrocodone 33 Dilaudid, Exalgo; Also a metabolite of hydrocodone and a minor (<5%) metabolite of morphine. 34 Metabolite of hydromorphone REFERENCE VALUE Cutoff: 100 35 Endocet, Percocet, Oxycontin 36 Metabolite of oxycodone 37 Numorphan, Opana; Also a metabolite of oxycodone. 38 Metabolite of oxymorphone REFERENCE VALUE Cutoff: 100 39 Metabolite of oxymorphone 40 Actiq, Duragesic, Fentora 41 Metabolite of fentanyl 42 Demerol 43 Metabolite of meperidine 44 Narcan 45 Metabolite of naloxone REFERENCE VALUE Cutoff: 100 46 Dolophine 47 Metabolite of methadone 48 Darvon, Darvocet 49 Metabolite of propoxyphene 50 Tradol, Ultram, Ultracet 51 Metabolite of tramadol 52 Nucynta 53 Metabolite of tapentadol 54 Metabolite of tapentadol REFERENCE VALUE Cutoff: 100 55 Buprenex, Suboxone 56 Metabolite of buprenorphine 57 Metabolite of buprenorphine 58 Test detected the presence of hydrocodone and one of its metabolites (norhydrocodone). Suspect use of hydrocodone within the past three days. ADDITIONAL INFORMATION This test was developed and its performance characteristics determined by [facility] in a manner consistent with CLIA requirements. This test has not been cleared or approved by the U.S. Food and Drug Administration. Test Performed by: [facility] - [address] [address] 59 ADDITIONAL INFORMATION This test was developed and its performance characteristics determined by [facility] in a manner consistent with CLIA requirements. This test has not been cleared or approved by the U.S. Food and Drug Administration. Test Performed by: [facility] - [address] [address] Test Performed by: [facility] - [address] [address] 61 Because ethnic data is not always readily available, this report includes an eGFR for both -Americans and non- Americans. The National Kidney Disease Education Program (NKDEP) does not endorse the use of the MDRD equation for patients that are not between the ages of 18 and 70, are , have extremes of body size, muscle mass, or nutritional status, or are non- or non-. According to the National Kidney Foundation, irrespective of diagnosis, the stage of the disease is based on the level of kidney function: Stage Description GFR(mL/min/1.73 m(2)) 1 Kidney damage with normal or decreased GFR 90 2 Kidney damage with mild decrease in GFR 60-89 3 Moderate decrease in GFR 30-59 4 Severe decrease in GFR 15-29 5 Kidney failure <15 (or dialysis) 62 Acute inflammation: >10.00 63 No interferon-gamma response to M. tuberculosis antigens was detected. Infection with M. tuberculosis is unlikely. A negative result alone does not exclude infection with M. tuberculosis. For detailed information regarding test interpretation see: www.[employer]/test-catalog/ Clinical+and+Interpretive/59270 64 Test Performed by: [place] [address] 65 Because ethnic data is not always readily available, this report includes an eGFR for both -Americans and non- Americans. The National Kidney Disease Education Program (NKDEP) does not endorse the use of the MDRD equation for patients that are not between the ages of 18 and 70, are , have extremes of body size, muscle mass, or nutritional status, or are non- or non-. According to the National Kidney Foundation, irrespective of diagnosis, the stage of the disease is based on the level of kidney function: Stage Description GFR(mL/min/1.73 m(2)) 1 Kidney damage with normal or decreased GFR 90 2 Kidney damage with mild decrease in GFR 60-89 3 Moderate decrease in GFR 30-59 4 Severe decrease in GFR 15-29 5 Kidney failure <15 (or dialysis) 66 Acute inflammation: >10.00 67 Acute inflammation: >10.00 68 REFERENCE VALUE <1.0 (Negative) 69 REFERENCE VALUE <1.0 (Negative) 70 REFERENCE VALUE <1.0 (Negative) 71 REFERENCE VALUE <1.0 (Negative) 72 REFERENCE VALUE <1.0 (Negative) 73 REFERENCE VALUE <1.0 (Negative) Test Performed by: [address] [address] 74 Because ethnic data is not always readily available, this report includes an eGFR for both -Americans and non- Americans. The National Kidney Disease Education Program (NKDEP) does not endorse the use of the MDRD equation for patients that are not between the ages of 18 and 70, are , have extremes of body size, muscle mass, or nutritional status, or are non- or non-. According to the National Kidney Foundation, irrespective of diagnosis, the stage of the disease is based on the level of kidney function: Stage Description GFR(mL/min/1.73 m(2)) 1 Kidney damage with normal or decreased GFR 90 2 Kidney damage with mild decrease in GFR 60-89 3 Moderate decrease in GFR 30-59 4 Severe decrease in GFR 15-29 5 Kidney failure <15 (or dialysis) 75 Test Performed by: [address] [address] 76 Test Performed by: [facility] - [address] [address] 77 REFERENCE VALUE <30.0 (Negative) Test Performed by: [facility] - [address] [address] 78 REFERENCE VALUE <15.0 (Negative) 79 REFERENCE VALUE <15.0 (Negative) Test Performed by: [address] [address] 80 Test Performed by: [facility] - [address] [address] 81 REFERENCE VALUE <20.0 (Negative) Test Performed by: [address] [address] 82 Adult Reference Ranges for Cortisol, Free, LC/MS/MS: 8:00 - 10:00 AM 0.07-0.93 mcg/dL 4:00 - 6:00 PM 0.04-0.45 mcg/dL 10:00 - 11:00 PM 0.04-0.35 mcg/dL This test was developed and its analytical performance characteristics have been determined by [facility]. It has not been cleared or approved by FDA. This assay has been validated pursuant to the CLIA regulations and is used for clinical purposes. Test Performed by: [facility] [address] [facility] [place] [address] 83 REFERENCE VALUE Not Applicable 84 RESULT: HLA-B27 antigen was not detected. ADDITIONAL INFORMATION Method: Flow Cytometry Performing Laboratory CLIA# [id number] Test Performed by: [facility] - [address] [address] Test Performed by: [facility] - [address] [address] 86 Serologic response to B. burgdorferi infection is not detected, but cannot rule out early infection during which low or undetectable antibody levels to B. burgdorferi may be present. If clinically indicated, a new serum specimen should be submitted in 7-14 days. Test Performed by: [facility] - [address] [address] 87 ADDITIONAL INFORMATION This test was developed and its performance characteristics determined by [facility] in a manner consistent with CLIA requirements. This test has not been cleared or approved by the U.S. Food and Drug Administration. Test Performed by: [facility] - [address] [address] 88 Normal Range 180 to 914 Indeterminate Range 145 to 180 Deficient Range <145 89 Negative for cANCA and pANCA patterns by immunofluorescence. ADDITIONAL INFORMATION This test was developed and its performance characteristics determined by [facility] in a manner consistent with CLIA requirements. This test has not been cleared or approved by the U.S. Food and Drug Administration. Test Performed by: [facility] - [address] [address] Procedures Date Code Description Status 03/01/2017 39649 Inject/Drain Joint/Bursa Major W/O US Completed 02/08/2017 86149 Nerve Conduction 05-06 Studies Completed 02/08/2017 10948 Needle Electromyography Each Extremity W/Related Completed Paraspinal Areas Encounters Type Date Location Provider Dx Diagnosis Office Visit 10/12/2017 Rheumatology Mae Perez2.9 Systemic lupus 8:00a [facility] erythematosus, unspecified R79.82 Elevated C-reactive protein (CRP) Z79.899 Other lobsterman (current) drug therapy R74.8 Abnormal levels of other serum enzymes R63.5 Abnormal weight gain M70.60 Trochanteric bursitis, unspecified hip Office Visit 08/17/2017 Rheumatology Willard M32.9 Systemic lupus 8:20a [facility] M.D. 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 involvement of connective tissue, unspecified M47.9 Spondylosis, unspecified M79.7 Fibromyalgia M70.62 Trochanteric bursitis, left hip Office Visit 01/18/2017 10:40a Rheumatology Willard Wall5.9 Systemic [facility] M.D. 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 involvement of connective tissue, unspecified M47.9 Spondylosis, unspecified M79.7 Fibromyalgia R79.82 Elevated C-reactive protein (CRP) Z79.52 long-term (current) use of systemic steroids Z79.899 Other prison (current) drug therapy H93.13 Tinnitus, bilateral Z23 Encounter for immunization Office Visit 10/11/2016 4:20p Rheumatology Willard M35.9 Systemic [facility] M.D. 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 Z79.899 Other lobsterman (current) drug therapy Office Visit 09/05/2016 [facility] Clark R76.8 Other specified 1:40p Infectious Miriam Knowles abnormal Diseases immunological findings in serum Office Visit 08/16/2016 Rheumatology Janey Perez.9 Systemic 11:40a [facility] 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 Z79.899 Other lobsterman (current) drug therapy Office Visit 07/22/2016 9:00a Rheumatology Willard Alfaro Z79.52 termite control service representative [facility] (current) use of systemic steroids R79.82 Elevated C-reactive protein (CRP) M06.4 Inflammatory polyarthropathy R21 Rash and other nonspecific skin eruption R68.2 Dry mouth, unspecified M79.1 Myalgia M54.5 Low back pain Plan of Treatment Future Appointment(s):01/16/2018 10:45 am - Leslie Stewart NP at [facility]01/08/2018 8:30 am - Gerardo Norris MD at [facility]01/02/2018 11:00 am - Leslie Stewart NP at [facility]01/11/2018 8:00 am - Willard Alfaro M.D. at [facility]12/27/2017 - Gerardo Norris, MDM32.9 Systemic lupus erythematosus, unspecifiedComments:poor venous acces, request for port placement. We discussed port placement using visual aids and risks including but not limited to bleeding, infection , pneumothorax, thrombosis explained, she seemedto understand, wishes to proceed and all questions answered
[2018-01-21] MEDS ORDERED: Hydrocodone/Acetamin 10/325 1 TAB PO PRN (15:47)
[2018-01-21] MEDS: Acetaminophen TAB* 325 MG PO PRN (16:29)
[2018-01-21] MEDS: NS 0.9% 1000 ML* 1,000 ML IV SCH (16:29)
[2018-01-21] MEDS: Oxacillin(*) 2 GM in NS 0.9% 100 ML* 100 ML IVPB SCH ×2 (17:26→21:08)
[2018-01-21] MEDS ORDERED: Ibuprofen TAB* 800 MG PO ONE (19:10)
[2018-01-21] MEDS: DESOGESTREL PO SCH (21:07)
[2018-01-21] MEDS: ETHINYL ESTRADIOL PO SCH (21:07)
[2018-01-21] MEDS: Gabapentin CAP(*) 300 MG PO SCH (21:07)
[2018-01-21] MEDS: Hydroxychloroquine TAB* 200 MG PO SCH (21:07)
[2018-01-21] MEDS: traZODone TAB* 50 MG TAB PO SCH (21:07)
[2018-01-21] MEDS: Heparin VIAL(*) 5000 UNITS/ML VIAL (FIVE THOUSAND) SUBCUT SCH (21:09)
--- NOTE | 2018-01-21 22:54 | HP ---
CC: Dr. Fay; Dr. Fernandes; Dr. Gerardo Norris; Dr. Rabago; Dr. Alfaro * HISTORY AND PHYSICAL: DATE OF ADMISSION: 01/21/18 PRIMARY CARE PROVIDER: Dr. Fay. CHIEF COMPLAINT: Transferred from [facility] for bacteremia. HISTORY OF PRESENT ILLNESS: Mrs. Albert is a 32-year-old female with history of lupus who just had a subcutaneous Mediport placed by Dr. Norris on 01/08/18 in the left subclavian area. That was performed due to the patient having history of lupus and frequent monthly infusion with biologic agent. The patient stated that the day after the procedure, she started feeling "pulling sensation" in her right chest area. She indicates the right side of her upper sternum, but there is no point tenderness. The patient stated that the pain is worse with movement, stretching, and taking a deep breath. She came into [facility] and was admitted yesterday for evaluation of that, noted to be possibly having pneumonia, prescribed ceftriaxone and azithromycin and placed for observation. A CT angiogram of the chest was obtained at [facility] and reportedly was negative for any abnormalities. The patient reported that during the night, she had a temperature of 101.4 degrees. Her blood culture obtained from peripheral stick was positive for MSSA 2/2 bottles. At that point, Dr. Rabago, who was seeing the patient at [facility], requested for the patient to be transferred. It was also noted at that point that the area of the patient's port placement had wound that dehisced and a small area of cellulitis. The patient was accepted for transfer to our hospital and she arrived today at around 3 p.m. PAST MEDICAL HISTORY: 1. Systemic lupus erythematosus. 2. History of hypothyroidism. 3. History of pneumonitis in the past. 4. History of ocular pain in the past. 5. History of tonsillectomy. 6. Status post left side Mediport placed on 01/08/18. 7. 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 8. History of chronic fatigue syndrome. MEDICATIONS: At home include: 1. Gabapentin 300 mg 3 times a day. 2. Plaquenil 200 mg b.i.d. 3. Hydrocodone/acetaminophen 7.5/325 mg 1 tablet b.i.d. p.r.n. 4. Butrans patch 10 mcg per hour, 10 mcg transdermally weekly. 5. Benlysta 200 mg injections monthly. 6. control pill "Ortho Tri" 1 tablet daily. 7. Levothyroxine 88 mcg daily. 8. Dramamine 50 mg on a p.r.n. basis. 9. Trazodone 50 mg at bedtime. 10. Ibuprofen 200 mg on a p.r.n. basis. 11. Prednisone 10 mg daily. ALLERGIES: No known drug allergies. FAMILY HISTORY: Positive for diabetes in father, asthma in mother. SOCIAL HISTORY: The patient denies any tobacco, alcohol or drug use. She lives with both of her parents and she lists her father as her surrogate. REVIEW OF SYSTEMS: Positive for above-mentioned chest pain. Negative for shortness of breath or cough. Positive for the wound that "never healed" after her surgery in the left subclavian area. The patient does not remember exactly when the erythema appeared in the skin surrounding the postoperative wound area. Positive for chronic joint pains, this is diffuse. All the remaining 12 systems were reviewed with the patient and were otherwise negative. PHYSICAL EXAMINATION GENERAL: The patient is a very pleasant 32-year-old obese female, who is in no acute distress, alert, awake and oriented x3. VITAL SIGNS: Blood pressure of 115/76, heart rate of 70 and regular, respiratory rate 18, oxygen saturation 94% on room air, temperature 98.2. HEENT: Head: Atraumatic, normocephalic. Eyes: Pupils are equal, reactive to light and accommodation. Oropharynx clear. Mucosa moist. NECK: Supple. No JVD, no bruits bilaterally. RESPIRATORY: Clear to auscultation bilaterally. CARDIOVASCULAR: Regular rate and rhythm. No murmurs. ABDOMEN: Soft, nontender. Bowel sounds are present in all 4 quadrants. EXTREMITIES: There is no edema. Pulses +2 bilaterally. There is no clubbing or cyanosis. NEUROLOGIC: On neuro evaluation, speech is clear. Cranial nerves II through XII grossly intact. Motor strength is 5/5 bilaterally. PSYCHIATRIC: On psychiatric evaluation, oriented x3 with no evidence of anxiety or depression. SKIN: On evaluation of the skin, the patient has left side subclavian port insertion area with the wound that is approximately 4 cm in length, dehisced . The bottom of the wound appears to have a small amount of purulent discharge. The surrounding area of the wound, approximately 10 cm in diameter, has streaking and cellulitis noted. The area indicated on the right side of the chest is not tender to palpation. There are no other skin abnormalities noted. LABORATORY DATA: Laboratory data obtained today at [facility]. The patient's blood cultures showed MSSA in both anaerobic and aerobic bottles and that was obtained on 01/20/18. On 01/21/18, sodium of 140, potassium 3.9, chloride 108, carbon dioxide 23, BUN 8, creatinine 0.7. The patient's lactic acid was last reported at around 8 p.m. on 01/20/18, it was 1.8. The patient's CBC showed white blood cell count of 15.2, hemoglobin of 10.6, hematocrit of 32, and platelets of 175. ESR was 65 documented on 01/20/18. IMAGING: CT angiogram obtained on 01/20/18, impression, "no evidence of acute pulmonary embolism. No infiltrate, effusion or pneumothorax. No significant mediastinal adenopathy. Normal thoracic aorta without dissection. Normal cardiac margins and pericardium. No acute bony abnormalities or upper abdominal abnormalities." ASSESSMENT AND PLAN: 1. Methicillin-susceptible Staphylococcus aureus bacteremia in patient who appears to have acquired the infection from the Mediport and had wound infection in the area. The Mediport was just removed by Dr. Fernandes by the bedside. The port was sent for cultures. At this point, the patient is going to be placed on intravenous hydration and oxacillin IV every 4 hours as an antibiotic. I will contact Dr. Spencer and proceed accordingly after infectious diseases consult and recommendations. 2. In regards to the patient's chronic pain, the patient is going to be continued on her oral narcotics. Unfortunately, we do not have Butrans on our formulary and patients cannot take narcotics from home. We will try to substitute it with something if needed. 3. For her systemic lupus erythematosus, the patient is going to be continued on her nonsteroidal antiinflammatory medications as well as her prednisone and Plaquenil. 4. For DVT prophylaxis, the patient is going to be placed on heparin subcutaneously. 5. The patient's code status is full and her surrogate is her father. TIME SPENT: Approximately 62 minutes was spent on admission of this patient, more than half of that time was spent [id number] with the patient during the interview and physical exam. [id number]/[facility] #: [id number] PAUL
--- NOTE | 2018-01-21 23:02 | OP ---
CC: Kiko Rabago DO; Willard Alfaro MD OPERATIVE REPORT: DATE OF OPERATION: 01/21/18 DATE OF : 83 SURGEON: Koko Fernandes MD. LOCAL AREA NETWORK SYSTEMS ADMINSTRATOR: None. ANESTHESIA: 1% lidocaine plain used locally. PRE-OP DIAGNOSIS: Bacteremia and dehiscence of PowerPort wound. POST-OP DIAGNOSIS: Bacteremia and dehiscence of PowerPort wound. OPERATIVE PROCEDURE: Removal of PowerPort, left chest. ESTIMATED BLOOD LOSS: Minimal. SPECIMEN: Fluid from the pocket and the port were sent for culture as well. DRAINS: None. COMPLICATIONS: None. COUNTS: Instrument, needle, and sponge counts were correct. INDICATIONS: This is a 32-year-old female who is status post PowerPort placement, left subclavian, on 01/08/18. She reports she had dehiscence of the skin soon after. She had presented to the [facility] with right-sided chest pain and was noted to have positive blood cultures the day after her admission there and based on the findings of the dehiscence of the wound and the positive blood culture, she was transferred to [facility] to have the port removed. The patient was seen and evaluated. I explained the rationale for the procedure. Risks, benefits, and alternatives were discussed including the option of no treatment. Risks were explained including but not limited to bleeding, infection, pain, and risk of anesthesia. The patient had an opportunity to ask questions. All questions were answered. She agreed to proceed. DESCRIPTION OF PROCEDURE: The patient was positioned supine on the hospital bed. The skin was prepped with Betadine, sterilely draped, and time-out performed. Local anesthetic consisting of 1% lidocaine plain was infiltrated into the skin and soft tissue over the wound in the left chest. There were visible sutures within the wound. The sutures were cut and portions were removed. There was some bloody fluid present within the areas of the pocket and this was cultured. The port was removed without difficulty and the port itself was submitted for culture as well. The hemostasis was achieved with direct pressure as well as the placement of a single 3-0 Vicryl suture at one of the corners. The wound was packed with 4 x 4 gauze, covered with 4 x 4 gauze and tape. She tolerated the procedure well. No immediate complications. [id number]/[facility] #: [id number] [facility]
[2018-01-22] MEDS: Oxacillin(*) 2 GM in NS 0.9% 100 ML* 100 ML IVPB SCH ×6 (01:04→21:12)
[2018-01-22] MEDS: NS 0.9% 1000 ML* 1,000 ML IV SCH (01:06)
[2018-01-22] MEDS ORDERED: Ketorolac INJ* 60 MG/2 ML VIAL IV PUSH ONE ×2 (04:54→19:32)
[2018-01-22] MEDS ORDERED: Ketorolac INJ* 30 MG/ML 1 ML VIAL ONE ×2 (04:57→19:47)
[2018-01-22] MEDS: Levothyroxine TAB* 88 MCG TAB PO SCH (05:23)
--- NOTE | 2018-01-22 05:34 | PN ---
Progress Note - Progress Note Date of Service: 01/22/18 Note: Called to see pt for new oxygen requirement Pt reports epigastric pressure causing splinting and SOB Lungs clear Now on 3L spO2 94% No PE on last CTA prior to transfer to [facility] and she has remained on SQH. Will d/c normal saline now and send for PA/LAT chest XR to evaluate further.
[2018-01-22] MEDS: Heparin VIAL(*) 5000 UNITS/ML VIAL (FIVE THOUSAND) SUBCUT SCH ×3 (05:52→21:16)
[2018-01-22 06:59] LABS: ABS Basophils 0 10^3/ul (0-0.2); ABS Eosinophils 0.1 10^3/ul (0-0.6); ABS Lymphocytes 0.4 10^3/ul (1.0-4.8); ABS Monocytes 0.3 10^3/ul (0-0.8); ABS Neutrophils 7.3 10^3/ul (1.5-7.7); ABS Nucleated RBC 0 10^3/ul; Eosinophil % 0.7 %; Hematocrit 31 % (35-47); Hemoglobin 10.3 g/dl (12.0-16.0); Lymphocyte % 4.8 %; Mean Corpuscular HGB Conc 34 g/dl (31-36); Mean Corpuscular Hemoglobin 30 pg (27-31); Mean Corpuscular Volume 89 fL (80-97); Mean Platelet Volume 7.9 fL (7.4-10.4); Nucleated Red Blood Cells % 0; Platelet Count 137 10^3/ul (150-450); Red Blood Count 3.41 10^6/ul (4.00-5.40); Red Cell Distribution Width 14 % (10.5-15); White Blood Count 8.1 10^3/ul (3.5-10.8)
[2018-01-22 07:20] LABS: BUN/Creatinine Ratio 18.5 (8-20); Calcium 8.1 mg/dL (8.6-10.3); EGFR Non-African American 81.4 (>60); Potassium 3.5 mmol/L (3.5-5.0)
[2018-01-22] MEDS ORDERED: Furosemide IV* 10 MG/ML 2 ML VIAL (20 MG) IV ONE (08:22)
[2018-01-22] MEDS: Gabapentin CAP(*) 300 MG PO SCH ×3 (09:00→21:13)
--- NOTE | 2018-01-22 10:55 | PN ---
Subjective Date of Service: 01/22/18 Interval History: Pt was SOB and CXR showed pulm edema. got Lasix 20 mg IV and urinated 7 times already. 02 sat 98% on RA, feels comfortable now. Objective Active Medications: Acetaminophen (Tylenol Tab*) 650 mg PO Q4H PRN PRN Reason: FEVER/PAIN Last Admin: 01/21/18 16:29 Dose: 650 mg Hydrocodone Bitart/Acetaminophen (Andrew 10/325 (Nf)) 1 tab PO QID PRN PRN Reason: PAIN Gabapentin (Neurontin Cap(*)) 300 mg PO TID [facility] Last Admin: 01/21/18 21:07 Dose: 300 mg Heparin Sodium (Porcine) (Heparin Vial(*)) 5,000 units SUBCUT Q8HR [facility] Last Admin: 01/22/18 05:52 Dose: 5,000 units Hydroxychloroquine Sulfate (Plaquenil Tab*) 200 mg PO BID [facility] Last Admin: 01/21/18 21:07 Dose: 200 mg Oxacillin Sodium 2 gm/ Sodium (Chloride) 100 mls @ 200 mls/hr IVPB Q4H [facility] Last Admin: 01/22/18 08:57 Dose: 200 mls/hr Levothyroxine Sodium (Synthroid Tab*) 88 mcg PO 0600 [facility] Last Admin: 01/22/18 05:23 Dose: Not Given Naproxen (Naprosyn Tab*) 375 mg PO DAILY [facility] Pto Nf Med* Desogestrel/Ethinyl Estradiol 0.15/0.03 Mg Tabs 1 dose PO BEDTIME [facility] Last Admin: 01/21/18 21:07 Dose: 1 dose Prednisone (Deltasone Tab*) 10 mg PO QAM [facility] Trazodone HCl (Desyrel Tab*) 50 mg PO BEDTIME [facility] Last Admin: 01/21/18 21:07 Dose: 50 mg Vital Signs - 8 hr 01/22/18 01/22/18 01/22/18 04:24 04:42 05:10 Temperature 98.0 F Pulse Rate 86 81 89 Respiratory 18 17 Rate Blood Pressure 122/73 105/74 (mmHg) O2 Sat by Pulse 94 93 92 Oximetry 01/22/18 01/22/18 01/22/18 06:47 08:08 08:15 Temperature 97.9 F Pulse Rate 82 Respiratory 20 20 Rate Blood Pressure 130/81 (mmHg) O2 Sat by Pulse 98 98 Oximetry Oxygen Devices in Use Now: None Appearance: 32 yo F in nAD, aAOx3 Eyes: No Scleral Icterus, PERRLA Ears/Nose/Mouth/Throat: NL Teeth, Lips, Gums, Mucous Membranes Moist Neck: NL Appearance and Movements; NL JVP, Trachea Midline Respiratory: Symmetrical Chest Expansion and Respiratory Effort, Clear to Auscultation Cardiovascular: NL Sounds; No Murmurs; No JVD, RRR Abdominal: NL Sounds; No Tenderness; No Distention Lymphatic: No Cervical Adenopathy Extremities: No Edema, No Clubbing, Cyanosis Skin: No Nodules or Sclerosis, - - left subclavian incision-wound with packing, not removed. Area of cellulits of surrounding skin is improving Neurological: Alert and Oriented x 3, NL Muscle Strength and Tone Result Diagrams: 01/22/18 06:43 01/22/18 06:43 Microbiology and Other Data: Microbiology 01/21/18 16:00 Gram Stain - Final Misc Source (See Comment) - Not Otherwise Specified 01/21/18 16:00 Skin and Soft Tissue MRSA/MSSA (PCR - Final Catheter Site Mrsa Negative S.aureus Positive Gram Stain - Final Assess/Plan/Problems-Billing Assessment: 32 yo F with h/o SLE s/p Mediport placement on 01/08/18 presented after a [place] transfer for MSSA bacteremia - Patient Problems (1) MSSA bacteremia Comment: Just reported that Mediport cx also positive for MSSA-likely the source of infection ID consulted. cont Oxacillin ANITA to r/o endocarditis planned for today (2) Fluid overload Comment: pt was SOB last night, got Lasix 20 mg IV this aM doing better now (3) Lupus (systemic lupus erythematosus) Comment: cont Plaquenil, Prednisone (4) Chronic pain Comment: cont home pain meds (5) DVT prophylaxis Comment: HSQ Status and Disposition: Inpatient
[2018-01-22] MEDS ORDERED: Flumazenil* 0.1 MG/ML 5 ML MDV ONE (11:36)
[2018-01-22] MEDS ORDERED: Naloxone* 0.4 MG/ML 1 ML VIAL ONE (11:36)
[2018-01-22] MEDS ORDERED: fentaNYL* 50 MCG/ML 2 ML VIAL (100 MCG VIAL) ONE (11:36)
[2018-01-22] MEDS ORDERED: Midazolam* 1 MG/ML 10 ML VIAL (10 MG) ONE (11:36)
[2018-01-22] MEDS ORDERED: Lidocaine 2% VISCOUS* 15 ML UDC ONE (11:38)
[2018-01-22] MEDS ORDERED: Ondansetron INJ* 2 MG/ML VIAL ONE (12:04)
--- NOTE | 2018-01-22 14:48 | PN ---
Progress Note - Progress Note Date of Service: 01/22/18 Note: S: POD #1, s/p removal of infected/dehisced Left SC powerport. On oxacillin. She denies sig pain. Fevers are down. Dr. Norris also stopped by at bedside and was able to look at the wound. Wound packing had apparently come out earlier today when she vomited. Current Medications Acetaminophen (Tylenol Tab*) 650 mg PO Q4H PRN PRN Reason: FEVER/PAIN Last Admin: 01/21/18 16:29 Dose: 650 mg Hydrocodone Bitart/Acetaminophen (Chappell 10/325 (Nf)) 1 tab PO QID PRN PRN Reason: PAIN Gabapentin (Neurontin Cap(*)) 300 mg PO TID [facility] Last Admin: 01/22/18 09:00 Dose: Not Given Heparin Sodium (Porcine) (Heparin Vial(*)) 5,000 units SUBCUT Q8HR [facility] Last Admin: 01/22/18 05:52 Dose: 5,000 units Hydroxychloroquine Sulfate (Plaquenil Tab*) 200 mg PO BID [facility] Last Admin: 01/21/18 21:07 Dose: 200 mg Oxacillin Sodium 2 gm/ Sodium (Chloride) 100 mls @ 200 mls/hr IVPB Q4H [facility] Last Admin: 01/22/18 14:09 Dose: 200 mls/hr Levothyroxine Sodium (Synthroid Tab*) 88 mcg PO 0600 [facility] Last Admin: 01/22/18 05:23 Dose: Not Given Naproxen (Naprosyn Tab*) 375 mg PO DAILY [facility] Pto Nf Med* Desogestrel/Ethinyl Estradiol 0.15/0.03 Mg Tabs 1 dose PO BEDTIME [facility] Last Admin: 01/21/18 21:07 Dose: 1 dose Prednisone (Deltasone Tab*) 10 mg PO QAM [facility] Trazodone HCl (Desyrel Tab*) 50 mg PO BEDTIME [facility] Last Admin: 01/21/18 21:07 Dose: 50 mg Vital Signs - 8 hr 01/22/18 01/22/18 01/22/18 06:47 08:08 08:15 Temperature 97.9 F Pulse Rate 82 Respiratory 20 20 Rate Blood Pressure 130/81 (mmHg) O2 Sat by Pulse 98 98 Oximetry Left upper chest wound: No sig erythema or palp tenderness; open wound measures ~ 3 x 1.5 x 2 cm depth. No expressible exudate. Explored w/ sterile Qtip; no undrained collections. Repacked w/ saline-moistened 1/2" plain pkg; jennifer'd well. DSD cover applied. C&S: S aureus (sens pend) Echo: pend A: s/p removal of powerport, improving P: abx and dispo per ID and hosp; wound can be managed as outpt. Will change pkg daily while in hospital, then q MWF in office.
[2018-01-22] MEDS: predniSONE TAB* 5 MG PO SCH (14:56)
[2018-01-22] MEDS: Hydroxychloroquine TAB* 200 MG PO SCH ×2 (14:57→21:13)
[2018-01-22] MEDS ORDERED: Potassium Chlor TAB* 20 MEQ TAB.ER PO ONE (16:21)
[2018-01-22] MEDS ORDERED: Ondansetron INJ* 2 MG/ML VIAL IV PRN (16:44)
[2018-01-22] MEDS: Acetaminophen TAB* 325 MG PO PRN (18:09)
[2018-01-22] MEDS ORDERED: Ketorolac INJ* 30 MG/ML 1 ML VIAL IV PUSH ONE (19:50)
[2018-01-22] MEDS: DESOGESTREL PO SCH (21:12)
[2018-01-22] MEDS: ETHINYL ESTRADIOL PO SCH (21:12)
[2018-01-22] MEDS: traZODone TAB* 50 MG TAB PO SCH (21:13)
[2018-01-23] MEDS: Oxacillin(*) 2 GM in NS 0.9% 100 ML* 100 ML IVPB SCH ×6 (01:12→22:26)
[2018-01-23] MEDS: Levothyroxine TAB* 88 MCG TAB PO SCH (05:37)
[2018-01-23] MEDS: Heparin VIAL(*) 5000 UNITS/ML VIAL (FIVE THOUSAND) SUBCUT SCH ×3 (05:38→22:25)
[2018-01-23 05:51] LABS: ABS Basophils 0 10^3/ul (0-0.2); ABS Eosinophils 0.1 10^3/ul (0-0.6); ABS Lymphocytes 0.8 10^3/ul (1.0-4.8); ABS Monocytes 0.5 10^3/ul (0-0.8); ABS Nucleated RBC 0 10^3/ul; Eosinophil % 2.1 %; Hematocrit 32 % (35-47); Hemoglobin 11.1 g/dl (12.0-16.0); Lymphocyte % 15.3 %; Mean Corpuscular HGB Conc 35 g/dl (31-36); Mean Corpuscular Hemoglobin 30 pg (27-31); Mean Corpuscular Volume 88 fL (80-97); Mean Platelet Volume 7.9 fL (7.4-10.4); Nucleated Red Blood Cells % 0; Platelet Count 142 10^3/ul (150-450); Red Blood Count 3.67 10^6/ul (4.00-5.40); Red Cell Distribution Width 14 % (10.5-15); White Blood Count 5.5 10^3/ul (3.5-10.8)
[2018-01-23 06:07] LABS: Calcium 8.1 mg/dL (8.6-10.3); Potassium 3.7 mmol/L (3.5-5.0)
[2018-01-23] MEDS: Hydroxychloroquine TAB* 200 MG PO SCH ×2 (08:31→22:23)
[2018-01-23] MEDS: Gabapentin CAP(*) 300 MG PO SCH ×3 (08:31→22:23)
[2018-01-23] MEDS: predniSONE TAB* 5 MG PO SCH (08:31)
[2018-01-23] MEDS: Naproxen TAB* 375 MG PO SCH (08:31)
--- NOTE | 2018-01-23 13:28 | PN ---
Progress Note - Progress Note Date of Service: 01/23/18 Note: Surgery Progress: S: Feels better today. Min discomfort r/t L port site. O: Vital Signs - 8 hr 01/23/18 01/23/18 01/23/18 07:11 08:31 08:40 Temperature 97.9 F Pulse Rate 71 Respiratory 16 18 18 Rate Blood Pressure 116/63 (mmHg) O2 Sat by Pulse 93 Oximetry 01/23/18 01/23/18 11:15 11:46 Temperature 98.2 F Pulse Rate 89 Respiratory 18 17 Rate Blood Pressure 142/68 (mmHg) O2 Sat by Pulse 93 Oximetry I did not take down dressing, but there is minimal strikethrough drainage and no tenderness to palp. A/P: s/p removal of infected powerport; likely home today on IV abx. Wound care instructions given. Patient's father will be instructed in packing changes; she has an appointment in our office on Monday, 01/26.
--- NOTE | 2018-01-23 15:07 | PN ---
Subjective Date of Service: 01/23/18 Interval History: Pt feels well. CP is resolving. no new complaints. Afebrile Objective Active Medications: Acetaminophen (Tylenol Tab*) 650 mg PO Q4H PRN PRN Reason: FEVER/PAIN Last Admin: 01/22/18 18:09 Dose: 650 mg Hydrocodone Bitart/Acetaminophen (Jasper 10/325 (Nf)) 1 tab PO QID PRN PRN Reason: PAIN Gabapentin (Neurontin Cap(*)) 300 mg PO TID [facility] Last Admin: 01/23/18 13:36 Dose: 300 mg Heparin Sodium (Porcine) (Heparin Vial(*)) 5,000 units SUBCUT Q8HR [facility] Last Admin: 01/23/18 13:36 Dose: 5,000 units Hydroxychloroquine Sulfate (Plaquenil Tab*) 200 mg PO BID [facility] Last Admin: 01/23/18 08:31 Dose: 200 mg Oxacillin Sodium 2 gm/ Sodium (Chloride) 100 mls @ 200 mls/hr IVPB Q4H [facility] Last Admin: 01/23/18 14:19 Dose: 200 mls/hr Levothyroxine Sodium (Synthroid Tab*) 88 mcg PO 0600 [facility] Last Admin: 01/23/18 05:37 Dose: 88 mcg Naproxen (Naprosyn Tab*) 375 mg PO DAILY [facility] Last Admin: 01/23/18 08:31 Dose: 375 mg Pto Nf Med* Desogestrel/Ethinyl Estradiol 0.15/0.03 Mg Tabs 1 dose PO BEDTIME [facility] Last Admin: 01/22/18 21:12 Dose: 1 dose Ondansetron HCl (Zofran Inj*) 4 mg IV Q6H PRN PRN Reason: NAUSEA Prednisone (Deltasone Tab*) 10 mg PO QAM [facility] Last Admin: 01/23/18 08:31 Dose: 10 mg Trazodone HCl (Desyrel Tab*) 50 mg PO BEDTIME [facility] Last Admin: 01/22/18 21:13 Dose: 50 mg Vital Signs - 8 hr 01/23/18 01/23/18 01/23/18 07:11 08:31 08:40 Temperature 97.9 F Pulse Rate 71 Respiratory 16 18 18 Rate Blood Pressure 116/63 (mmHg) O2 Sat by Pulse 93 Oximetry 01/23/18 01/23/18 01/23/18 11:15 11:46 13:36 Temperature 98.2 F Pulse Rate 89 Respiratory 18 17 18 Rate Blood Pressure 142/68 (mmHg) O2 Sat by Pulse 93 Oximetry Oxygen Devices in Use Now: None Appearance: 32 yo F in nAD, aAOx3 Eyes: No Scleral Icterus, PERRLA Ears/Nose/Mouth/Throat: NL Teeth, Lips, Gums, Mucous Membranes Moist Neck: NL Appearance and Movements; NL JVP, Trachea Midline Respiratory: Symmetrical Chest Expansion and Respiratory Effort, Clear to Auscultation Cardiovascular: NL Sounds; No Murmurs; No JVD, No Edema Abdominal: NL Sounds; No Tenderness; No Distention Lymphatic: No Cervical Adenopathy, No Inguinal Adenopathy Extremities: No Edema, No Clubbing, Cyanosis Skin: No Nodules or Sclerosis, - - left subclavian wound with packing in place, surrounding erythema resolved Neurological: Alert and Oriented x 3, NL Muscle Strength and Tone Result Diagrams: 01/23/18 05:34 01/23/18 05:34 Microbiology and Other Data: Microbiology 01/21/18 16:00 Gram Stain - Final Misc Source (See Comment) - Not Otherwise Specified 01/21/18 16:00 Skin and Soft Tissue MRSA/MSSA (PCR - Final Catheter Site Mrsa Negative S.aureus Positive Gram Stain - Final Assess/Plan/Problems-Billing Assessment: 32 yo F with h/o SLE s/p Mediport placement on 01/08/18 presented after a [place] transfer for MSSA bacteremia - Patient Problems (1) MSSA bacteremia Comment: Mediport cx also positive for MSSA-likely the source of infection ID consulted. cont Oxacillin for now, midline in place. CM is authororising pt for outpatient antibiotics ANITA to r/o endocarditis 01/22/18-negative (2) Fluid overload Comment: with pulm edema resolved (3) Lupus (systemic lupus erythematosus) Comment: cont Plaquenil, Prednisone (4) Chronic pain Comment: cont home pain meds (5) DVT prophylaxis Comment: HSQ Status and Disposition: Inpatient
--- NOTE | 2018-01-23 15:25 | CONS ---
CONSULTATION REPORT: DATE OF CONSULT: 01/23/18 REQUESTING PHYSICIAN: Dr. Strong. CONSULTING SERVICE: Infectious Diseases. REASON FOR CONSULTATION: Staphylococcal bacteremia and port infection. IMPRESSION: 1. Left chest port abscess and bacteremia. Port removed. Followup blood cultures done the following day are 1/4 bottles positive. Initial cultures from first visit were 2/2 bottles culture positive on the . She is tolerating amoxicillin well. A low-grade fever over night. Feels much better. No pain. No prosthetic material present. 2. Lupus. RECOMMENDATIONS: Continue IV antibiotics for another 7 days. She has no prosthetic material present. No other musculoskeletal pain and negative transesophageal echocardiogram. She goes home with IV antibiotics. She can have Ancef 2 g every 8 hours. If she needs the infusion center she can have daptomycin 500 mg daily. 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 After this was placed, she developed redness, swelling, and pain over the port. She had some chest pain with a deep breath. She went to [facility]; blood cultures taken there were 2/2 growing Staph aureus. She was transferred here for port removal, which was done on the . She tolerated that well. There is no pain or swelling at the left chest currently. She has had a low grade fever last night; otherwise, feeling much better. Followup cultures taken on the , 02/09 are positive for Staph aureus. She has no back or joint pain. She has no prosthetic material present. She had not an infection requiring hospitalization in past. PAST MEDICAL HISTORY: 1. Systemic lupus erythematosus. 2. Hypothyroidism. 3. Pneumonitis. 4. Status post tonsillectomy. 5. Left chest port placement on 01/08/18, now removed. 6. Status post bilateral knee surgeries after inflammatory arthropathy including a tibial transplant. 7. Chronic fatigue. ALLERGIES: No known drug allergies. MEDICATIONS: 1. Tylenol. 2. Oral contraceptive pill. 3. Gabapentin 4. Heparin subcutaneous injection. 5. Vicodin as needed. 6. Plaquenil. 7. Levothyroxine. 8. Naproxen. 9. Oxacillin 2 g every 4 hours. 8. Prednisone 10 mg a day. 9. Trazodone. SOCIAL HISTORY: She lives in [place]; works for [employer] in [place]. No travel. No sick contacts. FAMILY HISTORY: No recurrent infection or tuberculosis. REVIEW OF SYSTEMS: All negative except as noted above to a 14-point review. PHYSICAL EXAM: Vital Signs: Temperature 37, heart rate 90, respiratory rate 17. Blood pressure 142/68, oxygen saturation 93% on room air. In general, she is awake and not in distress. Neurologic: She is oriented x3. Follows all commands. HEENT: There is no conjunctival hemorrhage. Oropharynx without lesions. Neck: Supple without mass. Heart is regular rate and rhythm without murmurs, rubs, or gallops. Lungs are clear to auscultation bilaterally. Abdomen soft, nontender, nondistended. There are bowel sounds present. Skin: There is no rashes or hemorrhage. Left chest port site intact. There is no erythema or drainage. DIAGNOSTIC STUDIES/LAB DATA: White blood cell count 5.5, hemoglobin 11, platelets 142, MCV 88, creatinine 0.7. Please see impression and recommendations outlined above, which I have discussed with Dr. Strong. Thank you for asking me to see Ms. Albert in consultation. [id number]/[facility] #: [id number] [facility]
[2018-01-23] MEDS: traZODone TAB* 50 MG TAB PO SCH (22:21)
[2018-01-23] MEDS: DESOGESTREL PO SCH (22:24)
[2018-01-23] MEDS: ETHINYL ESTRADIOL PO SCH (22:24)
[2018-01-24] MEDS: Oxacillin(*) 2 GM in NS 0.9% 100 ML* 100 ML IVPB SCH ×2 (02:41→06:32)
[2018-01-24] MEDS: Levothyroxine TAB* 88 MCG TAB PO SCH (06:30)
[2018-01-24] MEDS: Heparin VIAL(*) 5000 UNITS/ML VIAL (FIVE THOUSAND) SUBCUT SCH (06:31)
[2018-01-24] MEDS: predniSONE TAB* 5 MG PO SCH (08:53)
[2018-01-24] MEDS: Gabapentin CAP(*) 300 MG PO SCH (08:53)
[2018-01-24] MEDS: Hydroxychloroquine TAB* 200 MG PO SCH (08:54)
[2018-01-24] MEDS: Naproxen TAB* 375 MG PO SCH (08:54)
[2018-01-24] MEDS ORDERED: DAPTOmycin SDV(*) 500 MG in NS 0.9% 50 ML* 50 ML IVPB SCH (10:00)
[2018-01-24 11:51] VITALS: BP 148/77
--- NOTE | 2018-01-24 16:46 | DS ---
ADDENDUM NOW INCLUDED ON THIS REPORT CC: Dr. Fay; Dr. Alfaro; Dr. Norris; Dr. Fernandes; Dr. Rabago; Dr. Spencer * DISCHARGE SUMMARY: DATE OF ADMISSION: 01/21/18 DATE OF DISCHARGE: 01/24/18 PRIMARY CARE PROVIDER: Dr. Fay. DISCHARGE DIAGNOSIS: Methicillin-susceptible Staphylococcus aureus bacteremia secondary to infected PowerPort in the left subclavian area. SECONDARY DIAGNOSES: 1. Systemic lupus erythematosus. 2. Hypothyroidism. 3. Pneumonitis in the past. 4. Status post tonsillectomy. 5. Left-sided Mediport placed on 01/08/18, removed on 01/21/18. 6. 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 7. Chronic fatigue syndrome. MEDICATIONS AT DISCHARGE: Include: 1. Gabapentin 300 mg 3 times a day. 2. Plaquenil 200 mg b.i.d. 3. Hydrocodone with acetaminophen on a p.r.n. basis. 4. Butrans patch 10 mcg per hour, weekly. 5. Benlysta 200 mg injections monthly, as per Dr. Alfaro. 6. control pill 1 tablet daily. 7. Levothyroxine 88 mcg daily. 8. Dramamine 50 mg on a p.r.n. basis. 9. Trazodone 50 mg at bedtime. 10. Ibuprofen on a p.r.n. basis. 11. Prednisone 10 mg daily. The patient is to present to [facility] at [facility] for daily daptomycin infusions 500 mg IV daily for a total of 7 days. LABORATORY DATA AND STUDIES PERFORMED DURING THE HOSPITAL STAY: Included: On 01/23/18, sodium of 140, potassium 3.7, chloride 107, carbon dioxide 27, BUN 9, creatinine 0.69. White blood cell count of 5.5, hemoglobin of 11.1, hematocrit of 32, and platelets of 142. Microbiology studies from skin and soft tissues, as well as wound of the left subclavian area after the Mediport was placed showed MSSA. Blood cultures obtained on 01/22/18 were positive for Staphylococcus aureus, methicillin- sensitive. CONSULTATIONS DURING THE HOSPITAL STAY: Included Dr. Fernandes from Surgery and Dr. Spencer, Infectious Diseases. HOSPITALIZATION COURSE: Monika Albert is a 32-year-old female with history of lupus, who had a Mediport placed on 01/08/18. She stated that the wound never properly closed and it appeared dehisced when she presented to our hospital for evaluation. She actually was transferred from [facility] where she was admitted the day prior for possible pneumonia. Nevertheless, the patient's blood cultures turned out positive for Staphylococcus aureus, methicillin-sensitive, and during that time she was noted to have infection of the Mediport wound and wound dehiscence. She was transferred to our facility for further surgical intervention and ID consult. Dr. Fernandes saw the patient on the day of transfer and removed the patient's Mediport. Later on, the Mediport cultures were positive for MSSA. Dr. Spencer saw the patient in consultation and recommended for the patient to have 7 days of IV daptomycin. The patient's daptomycin was arranged to be infused at [facility] on and she is going to receive a dose of daptomycin prior to her discharge today. Up to that point, she had been treated with oxacillin intravenously. The patient is to pack her wound on a daily basis as instructed by surgical service and taught by surgical service. She is to follow up with surgical service as already arranged. The patient is also recommended to follow up with Dr. Alfaro as well as Dr. Spencer within the next week or two. Surgical service has a followup appointment for the patient on 01/26/18 at 1:45 p.m. Please note that throughout the patient's hospital stay the patient had been complaining of intermittent pleuritic chest pain that had been ongoing since the insertion of her Mediport on 01/08/18. CT angiogram of the chest was obtained at [facility] and was reportedly negative. The patient has no point tenderness and no changes on the scan to explain that. She is not uncomfortable with the discomfort and she had not required pain medications specifically for this. It is possible that it is musculoskeletal pain related to the recent surgery. The patient developed pulmonary edema from fluid overload on the second day of her admission to our hospital and was treated with intravenous diuretic with good results, without any issues afterwards. PHYSICAL EXAMINATION: At the time of discharge, blood pressure of 132/64, heart rate of 75 and regular, respiratory rate 16, oxygen saturation 95% on room air, temperature 98.0. General: The patient is a pleasant 32-year-old female, who is in no acute distress. Alert, awake, and oriented x3. HEENT: Head: Atraumatic, normocephalic. Eyes: Pupils are equal, reactive to light and accommodation. Oropharynx is clear. Mucosa moist. Neck: Supple. No JVD. No bruits bilaterally. Cardiovascular: Regular rate and rhythm. No murmur. Respiratory: Clear to auscultation bilaterally. Abdomen: Soft, nontender. Bowel sounds are present in all 4 quadrants. Extremities: There is no edema. Pulses are +2 bilaterally. No clubbing or cyanosis. The patient has a med line in the right arm placed, without any evidence of skin problems at the point of insertion and the incision site. The patient's left-sided subclavian wound is approximately 4 cm in diameter with packing. The previously noted cellulitis on the skin is resolved. The patient has a small ecchymotic area below the incision site of the Mediport. Please note that this is a short summary of the patient's hospitalization. Please refer to further medical records for details. TIME SPENT: Approximately 40 minutes were spent on the patient's discharge. ADDENDUM: Please note that the patient had transesophageal echocardiogram performed to rule out endocarditis, which was obtained on 01/22/18 and showed no valvular abnormalities, no evidence of endocarditis, and EF of 55% to 60%. [id number]/[facility] #: [id number] Sandy- [id number]/[facility]PS #: [id number] PAUL
--- NOTE | 2018-01-24 17:36 | DS ---
ADDENDUM: Please note that the patient had transesophageal echocardiogram performed to rule out endocarditis, which was obtained on 01/22/18 and showed no valvular abnormalities, no evidence of endocarditis, and EF of 55% to 60%. [id number]/[facility] #: [id number] [facility]
== END 2018-01-24 13:25 | disposition home or self-care (01) | DRG 711 ==
LOC: SSU 15:04
PROVIDERS: ADMIT Internal Medicine; ATTEND Internal Medicine
PROC: 0JPT0WZ Removal of Totally Implantable Vascular Access Device from Trunk Subcutaneous Tissue and Fascia, Open Approach (ICD-10-PCS; 2018-01-21)
PROC: 05PY33Z Removal of Infusion Device from Upper Vein, Percutaneous Approach (ICD-10-PCS; 2018-01-21)
PROC: B24BZZ4 Ultrasonography of Heart with Aorta, Transesophageal (ICD-10-PCS; principal; 2018-01-22 10:30)
DX: T80.211A Bloodstream infection due to central venous catheter, initial encounter (principal); L03.319 Cellulitis of trunk, unspecified; T81.31XA Disruption of external operation (surgical) wound, not elsewhere classified, initial encounter; J81.1 Chronic pulmonary edema; M32.9 Systemic lupus erythematosus, unspecified; E03.9 Hypothyroidism, unspecified; R53.82 Chronic fatigue, unspecified; E66.9 Obesity, unspecified; G89.29 Other chronic pain; Y84.6 Urinary catheterization as the cause of abnormal reaction of the patient, or of later complication, without mention of misadventure at the time of the procedure; E87.70 Fluid overload, unspecified; B95.61 Methicillin susceptible Staphylococcus aureus infection as the cause of diseases classified elsewhere; Z83.3 Family history of diabetes mellitus; Z82.5 Family history of asthma and other chronic lower respiratory diseases; Y92.9 Unspecified place or not applicable; Z79.52 Long term (current) use of systemic steroids; Z68.32 Body mass index [BMI] 32.0-32.9, adult; Z87.01 Personal history of pneumonia (recurrent)
CPT/HCPCS: 36415; 71046; 80048; 85025; 87040; 87070; 87077; 87150; 87186; 87205; 87640; 87641; 88300; 93312; 93325; 99156; 99157; A9270-GY; J0878; J1644; J1885; J1940; J2250; J2310; J2405; J2700; J3010; J7512